=== PATIENT | female | born 1940 | race Caucasian/White ===

== ENCOUNTER 2020-01-25 11:35 | Observation (INO) ==
--- NOTE | 2020-01-25 12:05 | Diag Imaging Result Doc PS360 ---
CT HEAD W/O CONTRAST - 01/25/2020 INDICATION: stroke like s/sx COMPARISON: 07/27/2018 FINDINGS: There is mild diffuse cerebral atrophy. No intracranial mass or hemorrhage. The skull is intact. The sinuses are clear. There is dense vascular calcification of the carotid siphons indicating vascular disease. This also affects the vertebral arteries. IMPRESSION: No acute process. This exam was performed using automated exposure control, adjustment of mA or kV according to patient size, and/or use of iterative reconstruction technique Electronically signed by Carter Weir 01/25/2020 12:03 PM
[2020-01-25 16:08] LABS: URINE SOURCE CLEAN CATCH
[2020-01-25 16:11] LABS: BILIRUBIN URINE NEGATIVE (NEGATIVE); BLOOD URINE NEGATIVE (NEGATIVE); COLOR YELLOW; GLUCOSE URINE NEGATIVE (NEGATIVE); KETONE URINE NEGATIVE (NEGATIVE); LEUKOCYTES URINE NEGATIVE (NEGATIVE); NITRITE URINE NEGATIVE (NEGATIVE); PH URINE 6.5; PROTEIN URINE TRACE mg/dL (NEGATIVE); SP GRAVITY URINE 1.013; TURBIDITY URINE CLEAR (CLEAR); UROBILINOGEN URINE NORMAL (NORMAL)
[2020-01-25 16:13] LABS: UR EPITHELIAL CELLS <10 /HPF (<10); URINE BACTERIA NEGATIVE /HPF; URINE RBC <10 /HPF (<10); URINE WBC <10 /HPF (<10)
[2020-01-25 16:19] LABS: BASO# 0.04 X1000 (0.0-0.2); BASO% 0.5 % (0.0-0.8); EOS# 0.38 X1000 (0.0-0.7); EOS% 4.9 % (0.0-10.0); HEMATOCRIT 43.7 % (37.0-47.0); HEMOGLOBIN 13.8 g/dL (12.0-16.0); LYMPH# 2.29 X1000 (1.2-3.4); LYMPH% 29.7 % (20.5-51.1); MCH 27.9 PG (27-31); MCHC 31.6 g/dL (33-37); MCV 88.3 FL (81-99); MONO# 0.71 X1000 (0.11-0.59); MONO% 9.2 % (1.7-9.3); MPV 11.1 FL (7.4-10.4); NEUT# 4.28 X1000 (1.4-6.5); NEUT% 55.7 % (42.2-75.2); PLT 241 X1000 (130-400); RBC 4.95 XMIL (4.2-5.4); RDW 15.3 % (11.5-14.5)
[2020-01-25 16:38] LABS: ALB/GLOB RATIO 1.3; ALBUMIN 4.3 g/dL (3.5-5.0); CALCIUM 9.7 mg/dL (8.8-10.2); CREATININE 1.7 mg/dL (0.5-0.9); POTASSIUM 4.8 mmol/L (3.5-5.1); TOTAL BILIRUBIN 0.37 mg/dL (0.20-1.00); TOTAL PROTEIN 7.5 g/dL (6.3-8.3)
[2020-01-25] MEDS ORDERED: NS 1,000 ML IV ONE (16:55)
[2020-01-25] MEDS ORDERED: NS 1,000 ML IV SCH (18:16)
--- NOTE | 2020-01-25 18:16 | HISTORY AND PHYSICAL ---
PRIMARY CARE PHYSICIAN: Dr. Pradeep Judge CHIEF COMPLAINT: Left upper extremity numbness and double vision that resolved after she arrived to the emergency room but began this morning. HISTORY OF PRESENTING ILLNESS: This is an 79-year-old female who presents to [facility] with complaints of left upper extremity numbness and double vision that began this morning and had resolved by the time she came to the emergency room. She states she has also had some increased stress after she had to place her in a lock down dementia assisted living facility and not able to care for him anymore and had to place a caregiver in place to take care of him and has been living alone for the past 3 days. She has had a history of a stroke and 2 TIAs in the past. Her workup showed a CT of the head with no acute process. Laboratory data showed a BUN of 34 with a creatinine of 1.7. Baseline appears to be around 1.2 to 1.4. Urinalysis was negative. She did have some elevation in her LFTs that were mild with AST of 65, ALT of 47 with an alkaline phosphatase of 339, so she will be admitted for further evaluation and treatment. PAST MEDICAL HISTORY: Coronary artery disease, hypertension, hyperlipidemia, diabetes type 2, asthma, CVA, and depression. PAST SURGICAL HISTORY: Appendectomy, bilateral tubal ligation, hysterectomy, heart stent x2 and pig skin implanted in her rectum. FAMILY HISTORY: Reviewed and noncontributory. SOCIAL HISTORY: She currently is living alone. No tobacco. Drinks 1 glass of wine weekly and no illicit drug use. ALLERGIES: She has no known drug allergies. HOME MEDICATIONS: A current list will need to be obtained, reconciled, reviewed and restarted as appropriate. We will place an order for nursing to update and confirm home medications. LABORATORY DATA: Showed a white blood cell count of 7.70, hemoglobin 13.8, hematocrit 43.7, platelets 241,000. Sodium 140, potassium 4.8, chloride 101, CO2 26, BUN of 34, creatinine 1.7, glucose 86, AST of 65, ALT 47, alkaline phosphatase 339. Urinalysis was negative. CT of the head showed no acute process. REVIEW OF SYSTEMS: She denied any fever, chills, blurred vision, dizziness. She did have some double vision, left upper extremity numbness, increased stress. Denied any chest pain, coughing, shortness of breath. Denied any abdominal pain, constipation, diarrhea, burning or hurting with urination. PHYSICAL EXAMINATION: VITAL SIGNS: On arrival, she had a temperature of 97.8 degrees, pulse 82, respirations 16, blood pressure 112/53. Saturating 97% on room air. GENERAL: This is an 79-year-old female who is lying in the bed and answers questions appropriately. HEENT: Normocephalic, atraumatic. Normal ENT inspection. Oropharynx and nares are clear. EYES: Pupils are equal, round, reactive to light and accommodation. Extraocular movements are intact. NECK: Normal inspection. Normal range of motion. LUNGS: Clear to auscultation bilaterally with equal lung expansion and chest wall movement. HEART: With regular rate and rhythm. No murmurs, rubs, or gallops. ABDOMEN: Soft, nontender, nondistended. Bowel sounds are present x4 quadrants. MUSCULOSKELETAL: She had 5/5 strength x4 extremities. NEUROLOGICAL: The cranial nerves 2-12 appear grossly intact. ASSESSMENT: 1. Transient ischemic attack versus cerebrovascular accident. 2. Acute kidney injury on chronic kidney disease. 3. Hypertension. 4. Diabetes type 2. 5. Elevated liver function tests. PLAN: She will be admitted to the medical unit and placed on telemetry. We will place her on a healthy heart diet with NPO after midnight for a right upper quadrant abdominal ultrasound due to her elevated LFTs, we will do an echocardiogram and carotid Doppler, MRI of the brain without contrast. We will give her some gentle hydration at 75 mL an hour. We will start her on Lipitor 40 mg p.o. at bedtime, check a lipid panel, CBC, BMP in the a.m. physical therapy has been consulted and we need to update and confirm home medications. Further orders after seen by attending. Dictated by CARLY Bridges for Torres Zendejas MD cc: CARLY Bridges MD Patient with left hand tingling and possibly visual changes. all were resolved at the time of my exam. she had no neurologic deficits. suspect panic attack but she does report a history of a previous stroke so we will get an MRI to rule out. will also give IVF overnight as her creatinine is a little higher than her previous baseline. she reports taking a diuretic for her blood pressure and frequently drinks very little during the day so she may be a little dry. [place]
[2020-01-25] MEDS ORDERED: LIPITOR PO SCH (21:00)
[2020-01-26] MEDS ORDERED: ASPIRIN EC PO SCH (08:00)
[2020-01-26 08:19] LABS: BASO# 0.03 X1000 (0.0-0.2); BASO% 0.4 % (0.0-0.8); EOS% 2.6 % (0.0-10.0); HEMATOCRIT 38.7 % (37.0-47.0); HEMOGLOBIN 12.1 g/dL (12.0-16.0); LYMPH# 1.21 X1000 (1.2-3.4); LYMPH% 15.8 % (20.5-51.1); MCH 27.8 PG (27-31); MCHC 31.3 g/dL (33-37); MONO# 0.64 X1000 (0.11-0.59); MONO% 8.4 % (1.7-9.3); MPV 10.3 FL (7.4-10.4); NEUT# 5.57 X1000 (1.4-6.5); NEUT% 72.8 % (42.2-75.2); PLT 184 X1000 (130-400); RBC 4.35 XMIL (4.2-5.4); RDW 15.6 % (11.5-14.5); WBC 7.65 X1000 (4.8-10.8)
[2020-01-26 08:45] LABS: CALCIUM 8.7 mg/dL (8.8-10.2); CREATININE 1.4 mg/dL (0.5-0.9); POTASSIUM 4.9 mmol/L (3.5-5.1)
[2020-01-26] MEDS ORDERED: LOZOL PO SCH (09:00)
[2020-01-26] MEDS ORDERED: PLAVIX PO SCH (09:00)
[2020-01-26] MEDS ORDERED: WELLBUTRIN SR PO SCH (09:00)
[2020-01-26] MEDS ORDERED: SINGULAIR PO SCH (09:00)
--- NOTE | 2020-01-26 10:09 | Diag Imaging Result Doc PS360 ---
US GB < RUQ (LIMITED) - 01/26/2020 INDICATION: elevated lft TECHNIQUE: COMPARISON: 01/06/2016 FINDINGS: The right kidney is somewhat hyperechoic. No renal atrophy. No hydronephrosis. The right kidney measures 9.4 x 4.6 x 4.5 cm. Cortex measures 1 cm. The liver, gallbladder, and pancreas are normal. Common bile duct measures 5.6 mm. Aorta, IVC, and main portal vein are patent. IMPRESSION: Somewhat hyperechoic right kidney suggesting chronic medical renal disease. Electronically signed by Carter Weir 01/26/2020 10:07 AM
[2020-01-26 11:26] VITALS: BP 152/60
--- NOTE | 2020-01-26 12:20 | Diag Imaging Result Doc PS360 ---
MRI BRAIN W/O CONTRAST - 01/26/2020 INDICATION: TIA vs CVA COMPARISON: Head CT 01/25/2020 FINDINGS: There is no area of restricted diffusion. Stable mild cerebral atrophy. No intracranial mass or hemorrhage. There is mild deep cerebral white matter chronic microvascular ischemia. Midline structures are unremarkable. IMPRESSION: No acute process. Electronically signed by Carter Weir 01/26/2020 12:18 PM
--- NOTE | 2020-01-26 13:13 | ECHO REPORT ---
ORDER DATE: 01/26/2020 ECHOCARDIOGRAPHIC MEASUREMENTS: 1. Interventricular septum 1.0. 2. Left ventricular posterior wall 1.0. 3. Left ventricular diastolic diameter 3.8. 4. Left atrium 2.9. 5. Aorta 2.8. SUMMARY OF 2-DIMENSIONAL IMAGIN. Aortic valve leaflets are trileaflet. 2. Pulmonic valve was normal. 3. Mitral valve was normal. 4. Tricuspid valve was normal. 5. There is left atrial enlargement. 6. There is mild tricuspid regurgitation. Peak velocity across the tricuspid valve was 2.3 m/sec. There is mild mitral regurgitation. Normal left ventricular cavity size. Estimated ejection fraction of 65%. 7. Peak velocity across the aortic valve less than 2 m/sec by Doppler studies. There is no aortic stenosis or regurgitation. 8. There is no pericardial effusion, obvious intracardiac mass, or thrombus seen. 9. Indeterminate diastolic function. 10. There is no pericardial effusion or obvious intracardiac mass or thrombus seen. cc: MD Alla Light CRNP
[2020-01-26] MEDS ORDERED: FLU VACCINE IM ONE (13:52)
[2020-01-26] MEDS ORDERED: ZOLOFT PO SCH (21:00)
--- NOTE | 2020-01-27 08:52 | DISCHARGE SUMMARY ---
ADMISSION DATE: 01/25/2020 DISCHARGE DATE: 01/26/2020 PRIMARY CARE PHYSICIAN: Dr. Pradeep Judge. ADMISSION DIAGNOSES: 1. Transient ischemic attack versus cerebrovascular accident. 2. Acute kidney injury on chronic kidney disease. 3. Hypertension. 4. Diabetes type 2. 5. Elevated liver function tests. DISCHARGE DIAGNOSES: 1. Transient ischemic attack. 2. Acute kidney injury on chronic kidney disease, improved. 3. Hypertension. 4. Diabetes type 2. 5. Elevated liver function tests. SUMMARY OF FINDINGS: This is an 79-year-old female who presented to the ER with complaints of left upper extremity numbness and double vision that began on the morning of arrival but resolved by the time she came to the emergency room. She states that she had some increased stress after she had to place her in a lock-down dementia assisted living facility, was not able to care for him anymore. She had a history of a stroke and 2 TIAs in the past. Her CT of the head showed no acute process. We did a brain MRI that showed no acute process. Echocardiogram showed ejection fraction of 65%. We did an abdominal ultrasound due to her elevated LFT that showed a somewhat hyperechoic right kidney suggesting chronic medical renal disease, but no other issues were identified, so it is felt that she could safely be discharged home. DISCHARGE MEDICATIONS: Include Norvasc 10 mg p.o. daily, aspirin 81 mg p.o. daily, bupropion 150 mg p.o. daily, Celebrex 100 mg p.o. b.i.d., Plavix 75 mg p.o. daily, Indapamide 2.5 mg p.o. daily, magnesium oxide 250 mg p.o. daily, montelukast sodium 10 mg p.o. daily, rosuvastatin 40 mg p.o. at bedtime and sertraline 100 mg p.o. at bedtime. FOLLOWUP: She will need to follow up with her primary care physician in the next 1 to 2 weeks and call his office for an appointment. TIME SPENT: A 35 minute discharge for Saida Prescott. Dictated by CARLY Bridges for Torres Zendejas MD cc: CARLY Bridges MD patient's symptoms resolved. neuro workup unremarkable. suspect panic attack. patient placed on statin because of a history of stroke in the past. MTDD
--- NOTE | 2020-01-30 16:58 | Carotid Study ---
DATE: 01/26/2020 REFERRING PHYSICIAN: CARLY Bridges. READING PHYSICIAN: Rolan Cagle MD [employer]: Vicente. INDICATION: History of carotid stenosis. There is comparison study on 07/06/2018. FINDINGS: There is shadowing plaque at the takeoff of the right internal carotid artery, producing a moderate degree of stenosis and turbulence. On the left side there is irregular plaque disease in the left distal common carotid artery which extends into the proximal to mid internal carotid artery. This does produce more of a severe degree of stenosis and turbulence. There is antegrade vertebral flow bilaterally. Percent stenosis 40 to 59 percent on the right, 60 to 79 percent on the left. INTERPRETATION: Moderate carotid artery disease on the right side and severe carotid artery disease on the left side. The left side is worse compared to the prior study and may be approaching hemodynamic significance. cc: MD Alla Tatum CRNP
== END 2020-01-26 14:02 | disposition home or self-care (01) ==
LOC: ED 11:35 → INTOOBSV 18:13 → EDIPHOLD 18:13 → 3N 20:07
PROVIDERS: ATTEND Internal Medicine